=== PATIENT | female | born 1960 | race Caucasian/White ===

== ENCOUNTER → 2024-07-29 | Outpatient (CLI) | payer SELFPAY ==
--- NOTE | 2024-07-29 11:10 | RAD_ITS ---
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 COMPARISON: None FINDINGS: Straightening of the cervical lordosis. Vertebral body heights are maintained. Multilevel loss of disc space most prominent at C4-C5 and C5-C6. No acute fracture or traumatic malalignment. Atlantoaxial interval is maintained. Moderate multilevel degenerative changes, including endplate remodeling, uncinate hypertrophy most prominent at C4-C5 and C5-C6. Mild bilateral neural foraminal narrowing. Precervical soft tissue planes are maintained. Imaged lung apices are clear. RAD/Cerv Spine 4 or 5 Views IMPRESSION: No acute findings of the cervical spine. Moderate multilevel degenerative changes most prominent at C4-C5 and C5-C6. Reading Location: [facility]
--- NOTE | 2024-07-29 11:30 | RAD_ITS ---
PROCEDURE: Thoracic spine radiographs, two views 07/29/2024 REASON FOR EXAM: SEGMENTAL AND SOMATIC DYSFUNCTION OF THORACIC REGION. Shoulder and neck pain for 1 year TECHNIQUE: Two views of the thoracic spine were obtained. FINDINGS: Two views of the thoracic spine were obtained. Bones are osteopenic. Included lungs are clear. Probable calcified granulomas projecting over the left hilar region. Mild S shaped scoliotic curvature of the thoracic and upper lumbar spine on the AP view. No definite acute fracture or focal subluxation of the thoracic spine. 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 RAD/Thoracic Spine 2 Views IMPRESSION: Osteopenia. No acute bony abnormality of the thoracic spine is demonstrated. 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 If there is persistent pain or clinical concern, short-term follow-up MRI evalu ation may be considered. Reading Location: [facility]
== END | disposition home or self-care (01) ==
PROVIDERS: Referring Provider Chiropractor Orthopedic; Visit Provider Chiropractor Orthopedic
DX: M99.01 Segmental and somatic dysfunction of cervical region (principal); M99.02 Segmental and somatic dysfunction of thoracic region
CPT/HCPCS: 72050; 72052; 72070

== ENCOUNTER → 2024-10-16 | Outpatient (CLI) | payer SELFPAY ==
--- NOTE | 2024-10-16 13:55 | ECHOD_ITS ---
Reason For Study Reason For Study: New murmur Procedure This was a 2D Doppler, Color Flow transthoracic echocardiogram. Exam performed in department. Left Ventricle Normal LV size. Moderate concentric left ventricular hypertrophy. The left ventricular ejection fraction is 40 %. Right Ventricle Normal RV size. Normal systolic function. Tricuspid Valve Normal tricuspid valve. Moderate (2+) tricuspid valve insufficiency. Pulmonary artery systolic pressure is 70 mmHg. Aortic Valve Severe focal aortic valve calcification. Peak aortic valve gradient 125 mmHg. Mean aortic valve gradient 78 mmHg. Critical aortic stenosis. Mild (1+) aortic valve insufficiency. Pulmonic Valve Normal pulmonic valve. Mild (1+) pulmonic valve insufficiency. Great Vessels Normal aortic root. The pulmonary artery is normal size. Inferior vena cava collapse with respiration. Pericardium/Pleural No pericardial effusion. MMode/2D Measurements & Calculations LVIDd: 4.1 cm IVSd: 1.4 cm LVOT diam: 2.0 cm LVIDs: 3.3 cm LVPWd: 1.4 cm LVOT area: 3.2 cm2 RVDd: 3.1 cm FS: 18.0 % Ao root diam: 3.4 cm LAV(MOD-bp): 69.1 ml LVAd ap4: 23.2 cm2 LAV(MOD-bp) Indexed: 52.2 ml/m2 LVLd ap4: 7.1 cm LAV(MOD-sp2): 72.0 ml EDV(MOD-sp4): 61.2 ml LAV(MOD-sp4): 59.4 ml EDV(sp4-el): 64.1 ml LVAs ap4: 17.4 cm2 LVLs ap4: 6.5 cm ESV(MOD-sp4): 38.8 ml ESV(sp4-el): 39.4 ml EF(MOD-sp4): 36.7 % EF(sp4-el): 38.6 % SV(MOD-sp4): 22.5 ml SV(MOD-sp2): 21.9 ml LVAd ap2: 23.8 cm2 LVLd ap2: 7.5 cm SI(MOD-sp4): 17.0 ml/m2 SI(MOD-sp2): 16.6 ml/m2 EDV(MOD-sp2): 64.2 ml EDV(sp2-el): 64.2 ml LVAs ap2: 18.9 cm2 LVLs ap2: 7.4 cm ESV(MOD-sp2): 42.3 ml ESV(sp2-el): 41.2 ml EF(MOD-sp2): 34.2 % SV(sp4-el): 24.8 ml LA A4 area: 20.4 cm2 LA dimension(2D): 3.5 cm TAPSE: 1.7 cm RA A4 area: 17.2 cm2 Time Measurements MV dec time: 0.16 sec Doppler Measurements & Calculations MV E max ken: 156.1 cm/sec Lat Peak E' Ken: 5.9 cm/sec Med Peak E' Ken: 5.5 cm/sec MV A max ken: 47.7 cm/sec E/E' lat: 26.7 E/E' med: 28.2 MV E/A: 3.3 MV V2 max: 181.8 cm/sec MV P1/2t max ken: 179.5 cm/sec Ao V2 max: 558.4 cm/sec MV max P.2 mmHg MV P1/2t: 46.5 msec Ao max P.0 mmHg MV V2 mean: 86.6 cm/sec MV dec slope: 1131 cm/sec2 Ao V2 mean: 421.1 cm/sec MV mean P.0 mmHg Ao mean P.9 mmHg MV V2 VTI: 24.8 cm MVA(P1/2t): 4.7 cm2 Ao V2 VTI: 119.6 cm MVA(VTI): 2.6 cm2 AV (velocity ratio): 0.17 AMANDA(I,D): 0.55 cm2 AMANDA(V,D): 0.56 cm2 AI max ken: 393.1 cm/sec LV V1 max: 97.2 cm/sec SV(LVOT): 65.6 ml AI max P.1 mmHg LV V1 max P.8 mmHg LV V1 mean P.2 mmHg AI dec slope: 485.6 cm/sec2 LV V1 mean: 70.4 cm/sec AI P1/2t: 237.1 msec LV V1 VTI: 20.3 cm PA V2 max: 77.7 cm/sec TR max ken: 410.8 cm/sec TR max P.5 mmHg ECHO/Echo Complete Interpretation Summary Normal LV size. Moderate concentric left ventricular hypertrophy. The left ventricular ejection fraction is 40 %. Severe focal aortic valve calcification. Mean aortic valve gradient 78 mmHg. Mild (1+) aortic valve insufficiency. Critical aortic stenosis. Ordering Physician: Hazel Iqbal Referring Physician: Hazel Iqbal Performed By: Hailey Nagy RDCS
== END | disposition home or self-care (01) ==
LOC: CVS 13:54
PROVIDERS: Referring Provider Nurse Practitioner Adult Health; Visit Provider Nurse Practitioner Adult Health
DX: R01.1 Cardiac murmur, unspecified (principal); R06.01 Orthopnea
CPT/HCPCS: 93306